=== PATIENT | female | born 1985 | race Caucasian/White ===

== ENCOUNTER 2020-12-29 21:46 | Emergency (ER) | payer OTHER ==
[2020-12-29] MEDS ORDERED: CHERRY SYRUP 10 ML UDC PO ONE (22:40)
[2020-12-29] MEDS ORDERED: diphenhydrAMINE INJ 50 MG/ML VIAL IM STA (22:40)
[2020-12-29] MEDS ORDERED: DEXAMETHASONE 10 MG/ML VIAL PO STA (22:40)
--- NOTE | 2020-12-29 22:43 | ED Physician Documentation ---
History of Present Illness - Stated complaint Stated Complaint: RASH R HIP/UPPER LIP - Chief complaint Chief Complaint: General - History obtained from History obtained from: Patient - History of Present Illness Timing: Enter time (1100), Today - Additonal information Additional information: 35-year-old female who has had a surgical procedure done on her left ankle has been on some antibiotic until yesterday for superficial infection to the wound. She states she took the antibiotic twice per day and she does not know what the name of it is. This morning at 11 AM she discovered that she had some swelling to the right side of her abdomen that was red and she noted some puffiness to her lips. She is not on a KAREN inhibitor. She does not otherwise feel ill she is not short of breath and she does not have difficulty swallowing. Review of Systems Constitutional: denies: Fever Eyes: denies: Decreased vision Ears: denies: Ear pain Nose: denies: Congestion Throat: reports: Other (swollen lips). denies: Dental pain / toothache, Sore throat Cardiac: denies: Chest pain / pressure, Palpitations Respiratory: denies: Dyspnea, Cough GI: denies: Abdominal Pain, Nausea, Vomiting : denies: Dysuria, Frequency Skin: reports: Rash (to the left abdominal wall) Musculoskeletal: denies: Neck pain, Back pain, Extremity pain PD PAST MEDICAL HISTORY - Past Medical History Past Medical History: Yes - Past Surgical History Past Surgical History: Yes Ortho: Other - Present Medications Home Medications: Ambulatory Orders Medication Instructions Recorded Confirmed No Known Home Medications 12/29/20 12/29/20 - Social History Does the pt smoke?: Yes Smoking Status: Current every day smoker Does the pt drink ETOH?: Yes Does the pt have substance abuse?: No Substance Use and Type: Marijuana - Immunizations Immunizations are current?: Yes - POLST Patient has POLST: No PD ED PE NORMAL - Vitals Vital signs reviewed: Yes (tachy and hypertensive ) - General General: Alert and oriented X 3, No acute distress, Well developed/nourished - HEENT HEENT: Atraumatic, PERRL, EOMI, Other (There is swelling to the lips on the ri ght side both upper and lower noticable but not overwhelming) - Neck Neck: Supple, no meningeal sign, No bony TTP - Cardiac Cardiac: RRR, No murmur - Respiratory Respiratory: No respiratory distress, Clear bilaterally - Abdomen Abdomen: Soft, Non tender, No organomegaly - Back Back: No CVA TTP, No spinal TTP - Derm Derm: Normal color, Warm and dry, Other (There is an area to the right abdominal wall with urticaria specifically to one region. ) - Extremities Extremities: No deformity, Normal ROM s pain, No edema - Neuro Neuro: Alert and oriented X 3, gas blender 2-12 intact, No motor deficit, No sensory deficit, Normal speech Eye Opening: Spontaneous Motor: Obeys Commands Verbal: Oriented GCS Score: 15 - Psych Psych: Normal mood, Normal affect Results - Vitals Vitals: Vital Signs - 24 hr 12/29/20 12/29/20 21:54 21:56 Temperature 36.9 C 36.9 C Heart Rate 112 H 112 H Respiratory 15 15 Rate Blood Pressure 162/98 H 162/98 H O2 Saturation 100 100 Oxygen O2 Source Room air PD MEDICAL DECISION MAKING - ED course Complexity details: reviewed results, re-evaluated patient, considered differential, d/w patient ED course: 35-year-old female who appears to have an allergic reaction to antibiotic that she is uncertain of the name of appears to have urticaria to a specific area of her body consistent with a fixed drug eruption and she has some swelling to the upper and lower lip on the right side. This is the extent of the findings and the patient is administered dexamethasone 10 mg orally and 25 mg of Benadryl IM. We will asked her to discontinue the antibiotic which she has already done and take Benadryl 25 mg every 6 hours for the next 2 days. Departure - Departure Disposition: 01 Home, Self Care Clinical Impression: Drug allergy, anti-infective Condition: Stable Instructions: ED Drug React Allergic Follow-Up: Your, doctor [Other] Comments: Today it appears you have an allergy to the antibiotic you have been on recently. Please call us here at the hospital with the name of the antibiotic to print your medical record. The recommendation is to discontinue the use of the antibiotic and take Benadryl 25 mg every 6 hours for the next 2 days. Today we have given you a dose of dexamethasone and we expect this to improve your swelling over the next several hours. If you have worsening of your symptoms return to the emergency department.
[2020-12-29 22:53] VITALS: BP 142/82
== END 2020-12-29 22:52 | disposition home or self-care (01) ==
LOC: ED 21:46
DX: L27.1 Localized skin eruption due to drugs and medicaments taken internally (principal); R22.0 Localized swelling, mass and lump, head; T36.95XA Adverse effect of unspecified systemic antibiotic, initial encounter; Z98.890 Other specified postprocedural states; F17.200 Nicotine dependence, unspecified, uncomplicated
CPT/HCPCS: 99283; 99284; A9270; J1200